=== PATIENT | male | born 1985 | race African-American/Black ===

== ENCOUNTER 2020-01-12 09:50 | Emergency (ER) | payer BC ==
[~2020-01-12] VITALS: Ht 177.8 cm; Wt 107.0 kg
--- NOTE | 2020-01-12 09:55 | NUR ---
AAOX3, CAME TO ER C/O RIGHT GROIN PAIN X 2 DAYS, HX OF INGUINAL HERNIA REPAIR. RR IS EVEN AND UNLABORED WITH NAD NOTED. SKIN IS WARM AND DRY. AWAITING MD FOR EVAL.
--- NOTE | 2020-01-12 10:14 | NUR ---
DR DIEZ AT BS FOR EVAL.
[2020-01-12] MEDS ORDERED: IBUPROFEN 600 MG TABLET PO ONE (10:19)
[2020-01-12] MEDS: IBUPROFEN 600 MG TABLET PO ONE (10:22)
[2020-01-12 10:36] LABS: BASOPHILS # (AUTO) 0.1 /CMM (0.0-0.2); BASOPHILS % (AUTO) 0.2 % (0.0-2.0); EOSINOPHILS % (AUTO) 0.1 % (0.0-6.0); HEMATOCRIT 45 % (39-51); HEMOGLOBIN 14.4 g/dL (13.5-17.5); LYMPHOCYTES # (AUTO) 0.6 /CMM (0.8-4.8); LYMPHOCYTES % (AUTO) 2.4 % (20.0-44.0); MEAN CORPUSCULAR HGB CONC 32 g/dl (31.0-36.0); MEAN CORPUSCULAR VOLUME 81 fL (80-96); MONOCYTES # (AUTO) 1.6 /CMM (0.1-1.30); NEUTROPHILS % (AUTO) 90.3 % (43.0-81.0); PLATELET COUNT (AUTO) 221 /CMM (150-450); RED BLOOD CELL COUNT(AUTO) 5.57 MIL/uL (4.5-6.0); WHITE BLOOD COUNT (AUTO) 23.3 K/uL (4.3-11.0)
[2020-01-12 11:09] LABS: CREATININE 1.3 mg/dL (0.6-1.3)
[2020-01-12 11:24] LABS: BAND % (MANUAL) 3 % (0.0-5.0); LYMPHOCYTES % (MANUAL) 3 % (16-48); MONOCYTES % (MANUAL) 6 % (0-11.0); NEUTROPHILS % (MANUAL) 88 (42-76)
[2020-01-12] MEDS: IV NS 0.9% 1,000 ML BAG IV ONE (11:29)
[2020-01-12 11:32] LABS: APPEARANCE,URINE Clear (CLEAR); BILIRUBIN,URINE Negative (NEGATIVE); BLOOD, URINE Negative Ery/uL (NEGATIVE); COLOR,URINE Yellow (YELLOW); KETONES,URINE Negative (NEGATIVE); LEUKOCYTE ESTERASE ,URINE Negative (NEGATIVE); NITRITE, URINE Negative (NEGATIVE); PH,URINE 7.5 (5.0-8.0); PROTEIN,URINE Negative (NEGATIVE); UGLUCOSE Negative (NEGATIVE); UROBILINOGEN,URINE 0.2 EU/dL (0.2)
[2020-01-12 12:44] VITALS: BP 115/76
--- NOTE | 2020-01-12 12:44 | NUR ---
Patient discharged to home in stable condition. Written and verbal after care instructions given. Patient verbalizes understanding of instruction.IV removed. Catheter intact and site benign. Pressure and 4x4 applied to site. No bleeding noted.
== END 2020-01-12 12:45 | disposition home or self-care (01) ==
LOC: ER 09:57
DX: R10.31 Right lower quadrant pain (principal); K59.00 Constipation, unspecified; Z98.890 Other specified postprocedural states
CPT/HCPCS: 36415; 74022; 74176; 80048; 81001; 85025; 99285; J7030; 81000-TC